=== PATIENT | male | born 1980 | race Caucasian/White ===

== ENCOUNTER → 2021-06-28 | Outpatient (CLI) | payer BC | LOC: KOH-I 10:15 | DX: N17.9 Acute kidney failure, unspecified (principal) | CPT/HCPCS: 76775 ==

== ENCOUNTER → 2021-07-17 | Outpatient (CLI) | payer BC | LOC: LAB 17:03 | PROVIDERS: Internal Medicine Nephrology | DX: N17.9 Acute kidney failure, unspecified (principal) | CPT/HCPCS: 82570; 82575 ==